=== PATIENT | male | born 1985 | race Caucasian/White ===

== ENCOUNTER 2018-09-25 16:57 | Emergency (ER) | payer OTHER ==
[~2018-09-25] VITALS: Wt 83.6 kg
[2018-09-25] MEDS ORDERED: KETOROLAC 30 MG INJ IM STA (18:06)
[2018-09-25] MEDS ORDERED: IBUP-1542 PO (18:54)
[2018-09-25] MEDS ORDERED: CEPH-443 PO (18:54)
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
[2018-09-25 19:33] VITALS: BP 147/88; PULSE 77; RESP 18
== END 2018-09-25 19:36 | disposition home or self-care (01) ==
LOC: FTE 16:57
DX: S50.312A Abrasion of left elbow, initial encounter (principal); S53.402A Unspecified sprain of left elbow, initial encounter; S63.91XA Sprain of unspecified part of right wrist and hand, initial encounter; W18.39XA Other fall on same level, initial encounter; Y92.9 Unspecified place or not applicable
CPT/HCPCS: 73080; 73140; 96372; J1885; Z7502